=== PATIENT | male | born 1960 | race Caucasian/White ===

== ENCOUNTER 2017-01-08 11:43 | Emergency (ER) | payer OTHER ==
[2017-01-08] MEDS ORDERED: DIPHTH,PERTUSS(ACELL),TET VAC 0.5 ML VIAL IM ONE ×2 (11:59→12:07)
--- NOTE | 2017-01-08 12:31 | ERNOTE ---
Medical Problem HPI - General Chief Complaint: Laceration Time Seen by Provider: 01/08/17 12:02 Source: patient Exam Limitations: no limitations - Immun/Allergies/Home Medications Immunizations: IMMUNIZATION HX Immunizations Up to Date Yes Allergies/Adverse Reactions: Allergies No Known Allergies Allergy (Unverified 01/08/17 11:52) Home Medications: HOME MEDICATIONS Lansoprazole [Prevacid] 30 mg PO DAILY 01/08/17 [Last Taken Unknown] Ranitidine HCl [Zantac] 150 mg PO HS 01/08/17 [Last Taken Unknown] - History of Present History Narrative: Patient was working with a [employer] and it slipped and caused a laceration on his left medial thigh anterior. Patient complains the pain is only minimal and the bleeding is minimal as well. Timing: constant Severity: mild Review of Systems - Review of Systems Constitutional: Present: See HPI EYE: Present: no symptoms reported ENT: Present: no symptoms reported Respiratory: Present: no symptoms reported Cardiology: Present: no symptoms reported Gastrointestinal/Abdominal: Present: no symptoms reported Genitourinary: Present: no symptoms reported Musculoskeletal: Present: See HPI Skin: Present: See HPI Neurological: Present: no symptoms reported Endocrine: Present: no symptoms reported Hematologic/Lymphatic: Present: no symptoms reported Psych: Present: no symptoms reported - Patient's Past Medical History Patient History - Medical: No pertinent hx Patient History - Cardiac/Respiratory: No pertinent hx Patient History - Cancer: No Hx of Cancer - Social History Smoking Status: Never smoker Have you smoked in the past 12 months: No - Immunizations Immunizations Up to Date: Yes Physical Exam - Physical Exam General Appearance: Present: wd/wn, alert, mild distress Eye Exam: Normal inspection: bilateral, PERRL: bilateral Ears, Nose, Throat: Present: normal ENT inspection, H, normal pharynx Neck: Present: normal inspection, nontender Respiratory: Present: no respiratory distress, normal breath sounds, no accessory muscle use, chest nontender, lungs clear Cardiovascular/Chest: Present: regular rate, rhythm, no murmur, normal peripheral pulses Gastrointestinal/Abdominal: Present: normal bowel sounds, nontender, nondistended, soft, no organomegaly Rectal Exam: Present: deferred Back Exam: Present: normal inspection, normal range of motion Extremity Exam: Present: normal range of motion, no edema, other - patient has a 5 cm laceration on the left anterior mid thigh Neurological Exam: Present: alert, oriented, normal mood/affect Skin Exam: Present: normal color, warm/dry Lymphatic Exam: Present: no adenopathy ED Progress - Vital Signs Patient's Vital Signs:: I have reviewed the patient's vital signs. Vital Signs: Vital Signs 01/08/17 01/08/17 11:50 12:12 Temperature 36.2 C L 36.2 C L Pulse Rate 95 89 Respiratory 14 Rate Blood Pressure 155/96 147/84 O2 Sat by Pulse 95 96 Oximetry - Progress/Reassessment Chief Complaint: Laceration Procedures Anterior Thigh Anesthesia: 2% Lidocaine I & D Prep: sterile drapes applied, other - chlorhexidine prep Length of Repair/Wound (cm): 5 Wound's Depth/Shape: into subcutaneous Wound Explored: clean Distal NVT: neuro/vasc intact, no tendon injury Suture Size/Type: 3-0 Number of Sutures: 7 Wound Dressing: sterile dressing applied Complications: Pt rosa m procedure well Plan - Plan Plan: The wound closed nicely with only minimal bleeding and stitches will stay in for at least 10 days. Patient was given an Adacel and bacitracin was applied as well as a Band-Aid. Patient tolerated the procedure well. Departure - Departure Clinical Impression: Laceration Disposition: Home self-care Condition: Good Instructions: Laceration Care, Adult, [id number] Referrals: Fritz Arvizu MD [Primary Care Provider] -
[2017-01-08 12:42] VITALS: BP 136/89
== END 2017-01-08 12:41 | disposition home or self-care (01) ==
LOC: ER 11:43
PROC: 0JQP0ZZ Repair Left Lower Leg Subcutaneous Tissue and Fascia, Open Approach (ICD-10-PCS; principal; 2017-01-08)
DX: S71.112A Laceration without foreign body, left thigh, initial encounter (principal); W29.3XXA Contact with powered garden and outdoor hand tools and machinery, initial encounter; Z23 Encounter for immunization